=== PATIENT | female | born 1980 | race Caucasian/White ===

== ENCOUNTER 2017-08-15 06:56 | Inpatient (IN) | payer OTHER ==
[2017-08-15] MEDS ORDERED: BUTORPHANOL TARTRATE 1 MG/ML VIAL IVPB ONE (08:09)
[2017-08-15] MEDS ORDERED: PROMETHAZINE HCL 25 MG/1 ML VIAL IVPB ONE (08:09)
[2017-08-15] MEDS ORDERED: AMPICILLIN SODIUM 2 GM VIAL ONE (08:10)
[2017-08-15] MEDS ORDERED: AMPICILLIN - 2 GM in SODIUM CHLORIDE 100 ML IVPB ONE (08:11)
[2017-08-15] MEDS ORDERED: SODIUM PHOSPHATE/NA BIPHOS 133 ML ENEMA PR ONE (08:12)
[2017-08-15] MEDS ORDERED: DEXTROSE 5%-LACTATED RINGERS 1,000 ML IV SCH (08:15)
[2017-08-15 08:31] VITALS: BMI 27.6
[2017-08-15 08:46] LABS: BASO % 0.2 % (0-2.0); EOS % 0.4 % (0-4.5); HEMATOCRIT 37.6 % (32.4-45.2); HEMOGLOBIN 12.2 GM/dL (10.7-15.3); LYMPH % 13.7 % (8-40); MCH 29.6 pg (25.7-33.7); MCHC 32.4 g/dl (32.0-36.0); MEAN CELL VOLUME 91.6 fl (80-96); MEAN PLT VOLUME 9.7 fl (7.5-11.1); MONO % 7.5 % (3.8-10.2); NEUT % 78.2 % (42.8-82.8); PLATELET COUNT 249 K/MM3 (134-434); RBC 4.11 M/mm3 (3.60-5.2); RDW 13.4 % (11.6-15.6); WHITE BLOOD COUNT 8.3 K/mm3 (4.0-10.0)
[2017-08-15 09:01] LABS: INR 0.98 (0.82-1.09); PROTHROMBIN TIME (PATIENT) 11.1 SEC (9.98-11.88)
[2017-08-15 09:20] LABS: ALBUMIN 2.7 g/dl (3.4-5.0); ALK PHOS 314 U/L (45-117); ANION GAP 9 (8-16); BILIRUBIN,TOTAL 0.5 mg/dL (0.2-1.0); BLOOD UREA NITROGEN 6 mg/dL (7-18); CALCIUM 8.1 mg/dL (8.5-10.1); CHLORIDE 108 mmol/L (98-107); CO2 20 mmol/L (21-32); CREATININE 0.6 mg/dL (0.55-1.02); GLUCOSE,RANDOM 94 mg/dL (74-106); POTASSIUM 3.8 mmol/L (3.5-5.1); SGOT/AST 19 U/L (15-37); SGPT/ALT 22 U/L (12-78); SODIUM 137 mmol/L (136-145); TOT PROT 6.8 g/dl (6.4-8.2)
[2017-08-15] MEDS ORDERED: OXYTOCIN 20 UNITS in 0.9% NS 20 UNIT/1,000 ML INFUS.BAG IV ONE ×2 (10:17→12:45)
[2017-08-15] MEDS ORDERED: WITCH HAZEL 50% (TUCKS) 40 PAD/JAR PAD TP PRN (10:44)
[2017-08-15] MEDS ORDERED: oxyCODONE HCL 5 MG TABLET PO PRN (10:44)
[2017-08-15] MEDS ORDERED: BENZOCAINE 20% 57 GM BOTTLE TP PRN (10:44)
[2017-08-15] MEDS ORDERED: BENZOCAINE 28 GM HEMORRHOIDAL OINTMENT TP PRN (10:44)
[2017-08-15] MEDS ORDERED: METHYLERGONOVINE MALEATE 0.2 MG/1 ML AMP IM PRN (10:44)
[2017-08-15] MEDS ORDERED: ACETAMINOPHEN 325 MG TABLET (FP) PO PRN (10:44)
[2017-08-15] MEDS ORDERED: BISACODYL 10 MG SUPP.RECT RC PRN (10:44)
[2017-08-15] MEDS ORDERED: IBUPROFEN 600 MG TABLET (FP) PO PRN (10:44)
[2017-08-15] MEDS ORDERED: OXYTOCIN 20 UNITS in 0.9% NS 20 UNIT/1,000 ML INFUS.BAG IV SCH (10:45)
--- NOTE | 2017-08-15 10:58 | HP ---
Past Medical History - Primary Care Physician PCP:: Stephanie Ibrahim - Admission Chief Complaint: 36 yrs , 39.2/7 weeks iup, inset Lp since 3.00AM History of Present Illness: care at [facility] , wt gain 26 lbs work Up : B Pos, , Rpr nr, Hbsag , Rubella pos, Hiv neg, quantifeeron neg, sickle neg, Pngt 84, gc /ct neg, GBS unknown . h/o bv treated during pregn h/o GERD Limitations to Obtaining History: No Limitations - Past Medical History TAPE TRANSFERRER: No: CVA, Migraine, Seizure Cardiovascular: No: HTN Pulmonary: No: Asthma Gastrointestinal: Yes: GERD, Hemorrhoids Hepatobiliary: No: Cholelithiasis Renal/: No: UTI Reproductive: Yes: Other (h/o BV vaginitis) ...: 3 ...Para: 1 (1 12/21/11 7'12" ) ...Term: 1 ...: 0 ...Spon : 1 ...Induced : 0 ...Multiple Gestation: 0 ...LMP: 11/13/16 ... Weeks Gestation by Dates: 39.2 ...EDC by Dates: 08/20/16 ...EDC by Sono: 08/20/16 (39.2 wks ) Heme/Onc: Yes: Anemia Infectious Disease: No: AIDS, HIV, STD's Psych: Yes: Anxiety, Depression (h/o depression & anxiety in 2006, she was on meds , currently, she has no problems) ENT: Yes: Other (urti) Endocrine: No: Diabetes Mellitus - Past Surgical History Past Surgical History: Yes: None Hx Myomectomy: No Hx Transabdominal Cerclage: No - Smoking History Smoking history: Never smoked Have you smoked in the past 12 months: No - Alcohol/Substance Use Hx Alcohol Use: No History of Substance Use: reports: None Home Medications - Allergies Allergies/Adverse Reactions: Allergies Allergy/AdvReac Type Severity Reaction Status Date / Time No Known Allergies Allergy Verified 11/11/15 18:59 - Home Medications Home Medications: Ambulatory Orders One Tablet 1 tab PO DAILY 08/15/17 Physical Exam - Maternity Vital Signs: Vital Signs Temperature 97.9 F 08/15/17 07:10 Pulse Rate 70 08/15/17 09:00 Respiratory Rate 20 08/15/17 09:00 Blood Pressure 110/70 08/15/17 09:00 O2 Sat by Pulse Oximetry (%) Selected Entries 08/15/17 07:10 Weight 171 lb Constitutional: Yes: Well Nourished, Moderate Distress Eyes: Yes: WNL HENT: Yes: WNL, Normocephalic, Nasal Congestion, Rhinnorhea, Other (braces for teeth) Neck: Yes: WNL Cardiovascular: Yes: WNL, Regular Rate and Rhythm Lungs: Clear to auscultation Breast(s): Yes: WNL - Abdominal Exam/OB Fundal Height: 40 Number of Fetuses: Single Presentation: Vertex Contractions: Yes Regularity: Regular (2 3 min) Intensity: Strong Monitor Mode: External Heart Rate (range): 120-130 Category: I Accelerations: Uniform Decelerations: None - Vaginal Exam/OB Vaginal Bleediing: No Dilatation (cm): 8 Effacement (%): 100 Amniotic Membrane Status: Ruptured (AROM clear at 10.15 Am) Amniotic Fluid: Yes: Clear Presentation: Vertex/Position Station: +1 - Physical Exam Musculoskeletal: Yes: WNL Extremities: Yes: WNL. No: Calf Tenderness Edema: Yes Edema: LLE: 1+, RLE: 1+ Integumentary: Yes: WNL, Tattoos Deep Tendon Reflex Grade: Normal +2 ...Motor Strength: WNL Psychiatric: Yes: WNL, Alert, Oriented - Labs Lab Results: CBC, BMP 08/15/17 08:15 08/15/17 08:15 Problem List - Problems (1) with 39 completed weeks gestation Code(s): Z3A.39 - 39 WEEKS GESTATION OF (2) Labor established Code(s): AGK0857 - Assessment/Plan 36 yrs( AMA) , , 39.2/7 weeks in labor gbs unknown , rx Iv ampicillin prophylaxis anticipate vag, delivery
--- NOTE | 2017-08-15 11:23 | PN ---
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
[2017-08-15] MEDS ORDERED: AMPICILLIN - 1 GM in SODIUM CHLORIDE 100 ML IVPB SCH (12:11)
[2017-08-15] MEDS ORDERED: IBUPROFEN 600 MG TABLET (FP) PO ONE (12:16)
[2017-08-15] MEDS: FERROUS SO4 325 MG TABLET (FP) PO SCH (19:33)
[2017-08-16 09:07] LABS: BASO % 0.6 % (0-2.0); EOS % 0.9 % (0-4.5); HEMATOCRIT 34.6 % (32.4-45.2); HEMOGLOBIN 11.2 GM/dL (10.7-15.3); LYMPH % 18.3 % (8-40); MCH 29.5 pg (25.7-33.7); MCHC 32.4 g/dl (32.0-36.0); MEAN CELL VOLUME 91.1 fl (80-96); MEAN PLT VOLUME 9.3 fl (7.5-11.1); MONO % 5.2 % (3.8-10.2); PLATELET COUNT 244 K/MM3 (134-434); RDW 13.5 % (11.6-15.6); WHITE BLOOD COUNT 11.4 K/mm3 (4.0-10.0)
[2017-08-16] MEDS: FERROUS SO4 325 MG TABLET (FP) PO SCH ×2 (09:29→17:23)
[2017-08-16] MEDS: PRENATAL VITAMINS W/ FOLIC ACID TABLET (FP) PO SCH (09:29)
--- NOTE | 2017-08-16 10:11 | PN ---
Post Progress Note - Subjective Subjective: no complains Post Day: 1 Type of Delivery: Vital Signs: Vital Signs Temperature 98.8 F 08/16/17 07:47 Pulse Rate 60 08/16/17 07:47 Respiratory Rate 18 08/16/17 07:47 Blood Pressure 101/57 08/16/17 07:47 O2 Sat by Pulse Oximetry (%) 100 08/15/17 11:30 Breast Exam: Yes: Soft, Other (BF ). No: Engorged Uterus: Yes: Fundus Firm, Fundus below umbilicus, Non-tender Lochia: Yes: Rubra Lochia, amount: Moderate Extremities: Yes: Calves non-tender Perineum: Yes: Intact Activity: Ambulating - Labs Labs: CBC WBC 11.4 K/mm3 (4.0-10.0) H D 08/16/17 08:00 RBC 3.80 M/mm3 (3.60-5.2) 08/16/17 08:00 Hgb 11.2 GM/dL (10.7-15.3) 08/16/17 08:00 Hct 34.6 % (32.4-45.2) 08/16/17 08:00 MCV 91.1 fl (80-96) 08/16/17 08:00 MCH 29.5 pg (25.7-33.7) 08/16/17 08:00 MCHC 32.4 g/dl (32.0-36.0) 08/16/17 08:00 RDW 13.5 % (11.6-15.6) 08/16/17 08:00 Plt Count 244 K/MM3 (134-434) 08/16/17 08:00 MPV 9.3 fl (7.5-11.1) 08/16/17 08:00 Neutrophils % 75.0 % (42.8-82.8) 08/16/17 08:00 Lymphocytes % 18.3 % (8-40) D 08/16/17 08:00 Monocytes % 5.2 % (3.8-10.2) 08/16/17 08:00 Eosinophils % 0.9 % (0-4.5) D 08/16/17 08:00 Basophils % 0.6 % (0-2.0) 08/16/17 08:00 Problem List - Problems (1) with 39 completed weeks gestation Code(s): Z3A.39 - 39 WEEKS GESTATION OF (2) Labor established Code(s): LOX3806 - (3) Normal spontaneous vaginal delivery Code(s): O80 - ENCOUNTER FOR FULL-TERM UNCOMPLICATED DELIVERY Assessment/Plan stable plan discharge tomorrow.
[2017-08-16] MEDS ORDERED: SENNOSIDES/DOCUSATE COMBO (SENNA PLUS) TABLET (UD) PO PRN (22:00)
--- NOTE | 2017-08-17 03:37 | DS ---
Physical Exam-SENIOR MANAGING DIRECTOR Vital Signs: Vital Signs Temperature 98.1 F 08/16/17 20:58 Pulse Rate 64 08/16/17 20:58 Respiratory Rate 18 08/16/17 20:58 Blood Pressure 108/72 08/16/17 20:58 O2 Sat by Pulse Oximetry (%) 100 08/15/17 11:30 Constitutional: Yes: Well Nourished Eyes: Yes: WNL HENT: Yes: WNL Neck: Yes: WNL Cardiovascular: Yes: WNL Respiratory: Yes: WNL Gastrointestinal: Yes: WNL ...Rectal Exam: Yes: WNL Renal/: Yes: WNL ....Post : Yes: Uterus firm, Uterus non-tender, Moderate lochia rubra ( perineum intact) Breast(s): Yes: WNL (soft, BF) Musculoskeletal: Yes: WNL Extremities: Yes: WNL. No: Calf Tenderness Edema: No Integumentary: Yes: WNL Neurological: Yes: WNL, Alert, Oriented ...Motor Strength: WNL Psychiatric: Yes: WNL Labs: CBC, BMP 08/16/17 08:00 08/15/17 08:15 Delivery - Delivery Vaginal Delivery: No Problems, Spontaneous (compound presentation , hand pushed up, rotation of head was done to delver) Type of Anesthesia: None Episiotomy/Laceration: None EBL (cc): 300 Delivery, Single - Stages of Labor Date 1st Stage Initiatied: 08/15/17 Time 1st Stage Initiated: 03:00 Date 2nd Stage Initiated: 08/15/17 Time 2nd Stage Initiated: 10:20 Date of Delivery: 08/15/17 Time of Delivery: 10:30 Time Placenta Delivered: 10:35 Placenta: Yes: Spontaneous, Uterine Exploration - Condition of Infant Courtesy Car Driver/Alarm Mechanic Present: No Gender: Male Weight: 7 lb 15 oz Position: Left, OA Total Hours ROM (Hrs/Mins): 20 min clear - 1 Minute Total Score: 9 5 Minutes Total Score: 9 - Feeding Plan Initial Plan: Elected not to breastfeed exclusively throughout hospitalization Remarks - Remarks Remarks: 36 yrs 39.2 weeks in labor gbs unknown, received 1 dose of Iv Ampicillin 2 gm pt did not take any pain meds intrapartum course uneventful pp course uneventful. discharge today Discharge Summary Reason For Visit: LABOR ADMIT Current Active Problems Labor established (Acute) Normal spontaneous vaginal delivery (Acute) with 39 completed weeks gestation (Acute) Condition: Stable - Instructions Diet, Activity, Other Instructions: Post Instructions DIET: Continue good diet high in protein, calcium, and iron rich foods. Drink at least eight (8) glasses of water daily in addition to other fluids. ___ Regular diet MEDICATIONS: Continue vitamins and iron as previously directed. Motrin and Tylenol may be taken for minor discomfort. ACTIVITY: Mild to moderate exercise may be started in two (2) weeks. Take frequent rest periods. Resume normal activity after six (6) week check up. WOUND CARE OF OPERATIVE SITE: Continue use of perineal bottle until vaginal discharge stops. Keep area clean. Shower daily. Keep abdominal wound dry. Report any drainage or redness to physician. Tub baths, tampons and douches are not permitted for [address] Breast feeding & or Bottle feeding BREAST CARE: (For those that are not breast feeding): If engorgement occurs: Wear tight fitting bra. Take Tylenol or Motrin for pain. Apply cold packs (ice in bags to each breast ) FAMILY PLANNING: There are many control alternatives to pursue and they should be discussed at your first office visit. You may resume sexual activity after your six (6) week check up. (Remember, breast feeding is not a contraceptive) NEXT PHYSICIAN APPOINTMENT: Be certain to call for a six (6) week appointment, unless otherwise directed. Call Clinic or got to Emergency Dept if you have any of the following: Heavy vaginal bleeding Painful urination Leg pain Unusual odor noted to vaginal bleeding High fever Red streaking noted on breast Referrals: Stephanie Ibrahim MD [Staff Physician] - Disposition: HOME - Home Medications Comprehensive Discharge Medication List: Ambulatory Orders Acetaminophen [Tylenol .Regular Strength -] 650 mg PO Q3H PRN tablet 08/15/17 Ferrous Sulfate [Feosol] 325 mg PO BIDWM tab 08/15/17 Ibuprofen [Motrin -] 200 mg PO Q4H PRN tablet 08/15/17 One Tablet 1 tab PO DAILY 08/15/17 Vitamins (Sjr) - 1 tab PO DAILY tablet 08/15/17
[2017-08-17 08:06] VITALS: BP 115/76; PULSE 60; TEMP 98
[2017-08-17] MEDS: PRENATAL VITAMINS W/ FOLIC ACID TABLET (FP) PO SCH (09:02)
[2017-08-17] MEDS: FERROUS SO4 325 MG TABLET (FP) PO SCH (09:02)
== END 2017-08-17 12:10 | disposition home or self-care (01) | DRG 560 ==
LOC: JDEL 06:56 → JLDR 07:10 → J3W 12:50
PROVIDERS: ADMIT Obstetrics & Gynecology; ATTEND Obstetrics & Gynecology
PROC: 10E0XZZ Delivery of Products of Conception, External Approach (ICD-10-PCS; principal; 2017-08-15)
DX: O80 Encounter for full-term uncomplicated delivery (principal); Z3A.39 39 weeks gestation of pregnancy; Z37.0 Single live birth
CPT/HCPCS: 36415; 59409; 80053; 85025; 85610; 85730; 86593; 86850; 86900; 86901; 87389

== ENCOUNTER 2019-06-07 07:10 | Inpatient (IN) | payer OTHER ==
--- NOTE | 2019-06-07 08:17 | HP ---
Past Medical History - Primary Care Physician PCP:: Stephanie Ibrahim - Admission Chief Complaint: 38 yrs , , edc 06/12/19 39.2/7 weeks, onset LP since 4.00AM & SROM since 6.00AM History of Present Illness: PNC at [facility] wt gain 28 lbs Panel 11/08/18 O pos, , Hbsag neg, Hepc nr, Hiv nr, rpr nr, varicella immune, Rubella immune , 1 hr gtt 100 05/17/19 36 weeks cultures gc/neg, ct neg, gbs neg h/h 12.0/38.3 , plt 230 hsv 1 igg pos 15, hsv2 igg 1.5 pt had ? h/o herpes sevral years ago , solitary lesion noted on vulva by the patient , since hsv titers came pos she was placed on Valtrex 500 mg po daily on 06/01/19 . pt states she gets the bump sometimes , but doctor could not see, she did tacos not feel any more , she took valtrex last night h/o [place] rx ranitidine , followed by omeprazol , pt states nothing effective sonogram by [facility] for growth AMA ; Nt screen & AFP neg , 01/24/19 20.1 weeks anatomy sono sliup, wnl Last sono on 04/18/19 : 32.1 weeks, vx, , ant placenta , eusebio 13.2 , efw 4'3' (42 % tile) , bpp 03/23 History Source: Patient, Medical Record Limitations to Obtaining History: No Limitations - Past Medical History NOZZLEMAN: Yes: Other (declines) Cardiovascular: Yes: Other (declines) Gastrointestinal: Yes: GERD (rx omeprazol 20 mg), Hemorrhoids Hepatobiliary: No: Hepatitis B, Hepatitis C Renal/: No: UTI ...: 4 ...Para: 2 (G1 12/21/11 7'8" il preserian , G3 08/15/17 7' [facility] ) ...Term: 2 ...Spon : 1 (11/09/15) ...EDC by Sono: 06/12/19 (39.2 weeks ) Heme/Onc: Yes: Anemia Infectious Disease: Yes: Other (hsv titers positive) Psych: Yes: Anxiety, Depression (h/o depression & anxiety in 2006, she was on meds , currently, she has no problems) ENT: Yes: Other (urti) Endocrine: Yes: Other (none known to her) - Past Surgical History Past Surgical History: Yes: None Hx Myomectomy: No Hx Transabdominal Cerclage: No - Smoking History Smoking history: Never smoked Have you smoked in the past 12 months: No - Alcohol/Substance Use Hx Alcohol Use: No History of Substance Use: reports: None Home Medications - Allergies Allergies/Adverse Reactions: Allergies Allergy/AdvReac Type Severity Reaction Status Date / Time No Known Allergies Allergy Verified 06/07/19 08:01 - Home Medications Home Medications: Ambulatory Orders Vitamins (Sjr) - 1 tab PO DAILY tablet 08/15/17 Omeprazole 20 mg PO DAILY 06/07/19 Valacyclovir HCl [Valtrex -] 500 mg PO DAILY 06/07/19 Home Medications (free text): omeprazol 20 mg po daily. valcyclovir 500 mg po daily Physical Exam - Maternity Vital Signs: Selected Entries 06/07/19 06/07/19 07:30 08:00 Temperature 97.6 F 97.9 F Pulse Rate 83 67 Blood Pressure 116/71 131/70 Weight 178 lb Constitutional: Yes: Well Nourished, Obese Eyes: Yes: WNL HENT: Yes: WNL, Normocephalic Neck: Yes: WNL Cardiovascular: Yes: WNL, Regular Rate and Rhythm Lungs: Clear to auscultation Breast(s): Yes: WNL - Abdominal Exam/OB Fundal Height: 40 Number of Fetuses: Single Presentation: Vertex (exam at 7.35 AM) Contractions: Yes Regularity: Regular Intensity: Moderate Monitor Mode: External Heart Rate (range): 130 Heart Rate Location: [facility] Category: I Accelerations: Uniform - Vaginal Exam/OB Vaginal Bleediing: No Speculum Exam: No Dilatation (cm): 2 Effacement (%): 70 Amniotic Membrane Status: Ruptured Nitrazine Test: Positive Amniotic Fluid: Yes: Clear (gross leaking) Presentation: Vertex/Position (exam at 7.35 AM) Station: -3 - Physical Exam Musculoskeletal: Yes: WNL Extremities: Yes: WNL. No: Calf Tenderness Edema: No Integumentary: Yes: WNL, Other (external genitalia , vagina introitus , perineum no lesions noted) Deep Tendon Reflex Grade: Normal +2 ...Motor Strength: WNL Psychiatric: Yes: WNL, Alert, Oriented - Labs Lab Results: Laboratory Tests 06/07/19 06/07/19 08:20 08:20 WBC 8.7 Hgb 12.4 Hct 37.2 Plt Count 239 Neutrophils % 79.1 Lymphocytes % 13.1 D Monocytes % 7.2 Eosinophils % 0.4 Basophils % 0.2 Sodium 138 Potassium 3.7 Chloride 108 H Carbon Dioxide 21 BUN 7.8 Creatinine 0.7 Random Glucose 102 Calcium 8.6 Laboratory Tests 06/07/19 06/07/19 08:20 08:20 PT with INR 12.00 INR 1.02 PTT (Actin FS) 26.5 Blood Type O POSITIVE Antibody Screen Negative Problem List - Problems (1) with 39 completed weeks gestation Code(s): Z3A.39 - 39 WEEKS GESTATION OF (2) Labor established Code(s): OWN4067 - (3) SROM (spontaneous rupture of membranes) Code(s): HSK5068 - (4) AMA (advanced maternal age) multigravida 35+ Code(s): O09.529 - SUPERVISION OF ELDERLY MULTIGRAVIDA, UNSPECIFIED TRIMESTER Assessment/Plan 38 yrs , 39.2 weeks , srom , in early labor , gbs neg Plan expectant management trial vaginal delivery
[2019-06-07] MEDS ORDERED: PROMETHAZINE HCL 25 MG/1 ML VIAL IVPUSH ONE (08:40)
[2019-06-07] MEDS ORDERED: BUTORPHANOL TARTRATE 1 MG/ML VIAL IVPB ONE (08:40)
[2019-06-07] MEDS ORDERED: DEXTROSE 5%-LACTATED RINGERS 1,000 ML IV SCH (08:45)
[2019-06-07 08:48] LABS: BASO % 0.2 % (0-2.0); EOS % 0.4 % (0-4.5); HEMATOCRIT 37.2 % (32.4-45.2); HEMOGLOBIN 12.4 GM/dL (10.7-15.3); LYMPH % 13.1 % (8-40); MCH 29.8 pg (25.7-33.7); MCHC 33.2 g/dl (32.0-36.0); MEAN CELL VOLUME 89.8 fl (80-96); MEAN PLT VOLUME 9.4 fl (7.5-11.1); MONO % 7.2 % (3.8-10.2); NEUT % 79.1 % (42.8-82.8); PLATELET COUNT 239 K/MM3 (134-434); RBC 4.14 M/mm3 (3.60-5.2); RDW 13.2 % (11.6-15.6); WHITE BLOOD COUNT 8.7 K/mm3 (4.0-10.0)
[2019-06-07 09:00] VITALS: BMI 28.7
[2019-06-07 09:11] LABS: BLOOD UREA NITROGEN 7.8 mg/dL (7-18); CALCIUM 8.6 mg/dL (8.5-10.1); CREATININE 0.7 mg/dL (0.55-1.3); POTASSIUM 3.7 mmol/L (3.5-5.1)
[2019-06-07 09:14] LABS: INR 1.02 (0.83-1.09)
[2019-06-07 09:16] LABS: POC NITRAZINE POS
[2019-06-07 09:17] LABS: ACTIVATED PTT 26.5 SECONDS (25.2-36.5)
--- NOTE | 2019-06-07 09:21 | PN ---
Progress Note, Labor Vaginal Exam #1 Labor Exam Date: 06/07/19 Labor Exam Time: 09:15 Heart Rate (range): 140 Dilatation: 7 Effacement (%): 100 Amniotic Membrane Status: Ruptured Presentation: Vertex/Position Station: 0 Remarks: fhr cat-1 uc q 3-4 min strong pt declined pain meds Selected Entries 06/07/19 08:00 Temperature 97.9 F Pulse Rate 67 Blood Pressure 131/70 Vaginal Exam #2 Labor Exam Date: 06/07/19 Labor Exam Time: 09:25 Heart Rate (range): 130 Dilatation: 10 Effacement (%): 100 Presentation: Vertex/Position Station: +2 Remarks: pt pushing
[2019-06-07] MEDS ORDERED: OXYTOCIN 20 UNITS in 0.9% NS 20 UNIT/1,000 ML INFUS.BAG IV ONE (09:32)
--- NOTE | 2019-06-07 09:52 | PN ---
Delivery - Delivery Vaginal Delivery: No Problems, Spontaneous (, vx, baby girl, felisha position, shoulders delievered without difficulty, 9/9. immediate oral & nasal suction was done, delayed cord clamping was done , trvascular cord noted , placenta delievered completely with membranes, .MEU done perineum, vagina , cx , ut intact) Episiotomy/Laceration: None EBL (cc): 300 Delivery, Single - Stages of Labor Date 1st Stage Initiatied: 06/07/19 Time 1st Stage Initiated: 04:00 Date 2nd Stage Initiated: 06/07/19 Time 2nd Stage Initiated: 09:25 Date of Delivery: 06/07/19 Time of Delivery: 09:32 Date Placenta Delivered: 06/07/19 Time Placenta Delivered: 09:35 Placenta: Yes: Spontaneous, Uterine Exploration - Condition of Infant Barker Peeler/Metal Baler Present: No Infant Gender: Female Weight: 7 lb 3 oz Position: Left, OA Total Hours ROM (Hrs/Mins): 3hr.35min - 1 Minute Total Score: 9 5 Minutes Total Score: 9 - [place] Feeding Plan Initial Plan: Elected not to breastfeed exclusively throughout hospitalization Remarks - Remarks Remarks: 38 yrs , 39.2 weeks, gbs neg , srom in labor ipnc at [facility] intrapartum course uneventful, no pain meds taken v/s stable
[2019-06-07] MEDS ORDERED: METHYLERGONOVINE MALEATE 0.2 MG/1 ML AMP IM PRN (09:56)
[2019-06-07] MEDS ORDERED: ACETAMINOPHEN 325 MG TABLET (FP) PO PRN (09:56)
[2019-06-07] MEDS ORDERED: BENZOCAINE 20% 57 GM BOTTLE TP PRN (09:56)
[2019-06-07] MEDS ORDERED: BENZOCAINE 28 GM HEMORRHOIDAL OINTMENT TP PRN (09:56)
[2019-06-07] MEDS ORDERED: BISACODYL 10 MG SUPP.RECT RC PRN (09:56)
[2019-06-07] MEDS ORDERED: WITCH HAZEL 50% (TUCKS) 40 PAD/JAR PAD TP PRN (09:56)
[2019-06-07] MEDS ORDERED: oxyCODONE HCL 5 MG TABLET PO PRN (09:56)
[2019-06-07] MEDS ORDERED: OXYTOCIN 20 UNITS in 0.9% NS 20 UNIT/1,000 ML INFUS.BAG IV SCH (10:00)
[2019-06-07] MEDS: PRENATAL VITAMINS W/ FOLIC ACID TABLET (FP) PO SCH (10:45)
[2019-06-07] MEDS: IBUPROFEN 600 MG TABLET (FP) PO PRN (13:12)
--- NOTE | 2019-06-08 06:50 | PN ---
Post Progress Note - Subjective Subjective: Doing well. Pain controlled. No N/V. No fevers/chills. Post Day: 1 Type of Delivery: Vital Signs: Vital Signs Temperature 98.1 F 06/08/19 05:36 Pulse Rate 58 L 06/08/19 05:36 Respiratory Rate 18 06/08/19 05:36 Blood Pressure 126/84 06/08/19 05:36 O2 Sat by Pulse Oximetry (%) 99 06/07/19 10:45 Uterus: Yes: Fundus below umbilicus Abdomen/GI: Yes: Abdomen soft, Passing flatus, Tolerating PO Lochia: Yes: Rubra Lochia, amount: Small Extremities: Yes: Calves non-tender Activity: Ambulating - Labs Labs: CBC WBC 8.7 K/mm3 (4.0-10.0) 06/07/19 08:20 RBC 4.14 M/mm3 (3.60-5.2) 06/07/19 08:20 Hgb 12.4 GM/dL (10.7-15.3) 06/07/19 08:20 Hct 37.2 % (32.4-45.2) 06/07/19 08:20 MCV 89.8 fl (80-96) 06/07/19 08:20 MCH 29.8 pg (25.7-33.7) 06/07/19 08:20 MCHC 33.2 g/dl (32.0-36.0) 06/07/19 08:20 RDW 13.2 % (11.6-15.6) 06/07/19 08:20 Plt Count 239 K/MM3 (134-434) 06/07/19 08:20 MPV 9.4 fl (7.5-11.1) 06/07/19 08:20 Absolute Neuts (auto) 6.8 K/mm3 (1.5-8.0) 06/07/19 08:20 Neutrophils % 79.1 % (42.8-82.8) 06/07/19 08:20 Lymphocytes % 13.1 % (8-40) D 06/07/19 08:20 Monocytes % 7.2 % (3.8-10.2) 06/07/19 08:20 Eosinophils % 0.4 % (0-4.5) 06/07/19 08:20 Basophils % 0.2 % (0-2.0) 06/07/19 08:20 Nucleated RBC % 0 % (0-0) 06/07/19 08:20 Assessment/Plan 38yo s/p , PPD#1 Routine PP care OOB, ambulate Labs pending Anticipate d/c to home PPD#2 Peg Lynn MD
[2019-06-08 07:49] LABS: BASO % 0.3 % (0-2.0); EOS % 0.9 % (0-4.5); HEMATOCRIT 35.3 % (32.4-45.2); HEMOGLOBIN 11.8 GM/dL (10.7-15.3); LYMPH % 15.3 % (8-40); MCH 29.8 pg (25.7-33.7); MCHC 33.4 g/dl (32.0-36.0); MEAN CELL VOLUME 89.3 fl (80-96); MEAN PLT VOLUME 9.3 fl (7.5-11.1); MONO % 6.7 % (3.8-10.2); NEUT % 76.8 % (42.8-82.8); PLATELET COUNT 214 K/MM3 (134-434); RBC 3.96 M/mm3 (3.60-5.2); RDW 13.4 % (11.6-15.6); WHITE BLOOD COUNT 10.2 K/mm3 (4.0-10.0)
[2019-06-08] MEDS ORDERED: DIPHTH,PERTUSS(ACELL),TET 0.5 ML DISP.SYRIN IM ONE (10:00)
[2019-06-08] MEDS: PRENATAL VITAMINS W/ FOLIC ACID TABLET (FP) PO SCH (10:42)
[2019-06-08] MEDS: FERROUS SO4 325 MG TABLET (FP) PO SCH ×2 (10:42→10:45)
[2019-06-08] MEDS: IBUPROFEN 600 MG TABLET (FP) PO PRN (15:15)
[2019-06-08] MEDS ORDERED: SENNOSIDES/DOCUSATE COMBO (SENNA PLUS) TABLET (UD) PO PRN (22:00)
--- NOTE | 2019-06-09 07:21 | PN ---
Progress Note (short form) - Note Progress Note: ppd 2, no c/o , voids ok,no excess vaginal bleeding CBC, BMP 06/08/19 07:13 06/07/19 08:20 Last Vital Signs Temp Pulse Resp BP Pulse Ox 98.9 F 70 20 127/73 99 06/08/19 22:00 06/08/19 22:00 06/08/19 22:00 06/08/19 22:00 06/07/19 10:45 abdomen soft, uterus firm lochia mild no calf tenderness plan d/c home. follow up [facility] care 4 weeks
[2019-06-09] MEDS: PRENATAL VITAMINS W/ FOLIC ACID TABLET (FP) PO SCH (10:01)
[2019-06-09] MEDS: FERROUS SO4 325 MG TABLET (FP) PO SCH (10:01)
--- NOTE | 2019-06-09 12:23 | DS ---
Physical Exam-NUT SIFTER Vital Signs: Vital Signs Temperature 98.9 F 06/08/19 22:00 Pulse Rate 70 06/08/19 22:00 Respiratory Rate 20 06/08/19 22:00 Blood Pressure 127/73 06/08/19 22:00 O2 Sat by Pulse Oximetry (%) 99 06/07/19 10:45 Constitutional: Yes: Diaphoresis Eyes: Yes: WNL HENT: Yes: WNL Neck: Yes: WNL Cardiovascular: Yes: WNL Respiratory: Yes: WNL Gastrointestinal: Yes: WNL, Normal Bowel Sounds ...Rectal Exam: Yes: WNL Renal/: Yes: WNL. No: CVA Tenderness - Left, CVA Tenderness - Right ....Post : Yes: Uterus firm, Uterus non-tender, Moderate lochia rubra ( perineum intact) Breast(s): Yes: WNL Musculoskeletal: Yes: WNL Extremities: Yes: WNL. No: Calf Tenderness Edema: Yes Edema: LLE: 1+, RLE: 1+ Neurological: Yes: WNL, Alert, Oriented ...Motor Strength: WNL Psychiatric: Yes: WNL, Alert, Oriented Labs: CBC, BMP 06/08/19 07:13 06/07/19 08:20 Delivery - Delivery Vaginal Delivery: No Problems, Spontaneous (, vx, baby girl, felisha position, shoulders delievered without difficulty, 9/9. 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 Infusion Present: No Infant Gender: Female Weight: 7 lb 3 oz Position: Left, OA Total Hours ROM (Hrs/Mins): 3hr.35min - 1 Minute Total Score: 9 5 Minutes Total Score: 9 - Feeding Plan Initial Plan: Elected not to breastfeed exclusively throughout hospitalization Remarks - Remarks Remarks: 38 yrs , 39.2 weeks, gbs neg , srom in labor ipnc at [facility] intrapartum course uneventful, no pain meds taken v/s stable pp course uneventful discharge today Discharge Summary Problems reviewed: Yes Reason For Visit: LABOR Current Active Problems AMA (advanced maternal age) multigravida 35+ (Acute) SROM (spontaneous rupture of membranes) (Acute) Procedures: Principal: Hospital Course: uneventful Health Concerns: none Plan of Treatment: as directed Goals: maternal , well being Condition: Stable - Instructions Diet, Activity, Other Instructions: Regular Diet Follow up in 4 weeks Referrals: Irina Lynn MD [Staff Physician] - Disposition: HOME - Home Medications Comprehensive Discharge Medication List: Ambulatory Orders Vitamins (Sjr) - 1 tab PO DAILY tablet 08/15/17 Omeprazole 20 mg PO DAILY 06/07/19 Valacyclovir HCl [Valtrex -] 500 mg PO DAILY 06/07/19 Ibuprofen 600 mg PO Q6H PRN #30 tablet 06/08/19 Prescription Drug Monitoring Program (I-STOP) results: I-STOP reviewed and no issues identified
[2019-06-09 17:32] VITALS: BP 122/68; PULSE 72; TEMP 98.5
== END 2019-06-09 12:30 | disposition home or self-care (01) | DRG 560 ==
LOC: JDEL 07:10 → JLDR 07:30 → J3W 11:46
PROVIDERS: ADMIT Obstetrics & Gynecology; ATTEND Obstetrics & Gynecology
PROC: 10E0XZZ Delivery of Products of Conception, External Approach (ICD-10-PCS; principal; 2019-06-07)
DX: O99.214 Obesity complicating childbirth (principal); Z3A.39 39 weeks gestation of pregnancy; Z37.0 Single live birth
CPT/HCPCS: 36415; 59409; 80048; 83986-QW; 85025; 85610; 85730; 86593; 86850; 86870; 86900; 86901; 86902; 90715

== ENCOUNTER 2019-08-18 04:27 | Day surgery (SDC) | payer OTHER ==
[2019-08-14 10:55] VITALS: BMI 26.9
--- NOTE | 2019-08-18 09:54 | HP ---
Admitting History and Physical - Admission Chief Complaint: Desires Sterilization History of Present Illness: 38yo here for permanent sterilization via LSC b/l salpingectomy. Declined other LARCs Adamant she wants no future pregnancies/children. 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 No: AFIB, Aneurysm, Aortic Insufficiency , Aortic Stenosis, CAD, CHF, Deep Vein Thrombosis, HTN, Hyperlipdemia, VT, Mitral Insufficiency, Mitral Stenosis, Murmur, Pulmonary Hypertension Pulmonary: No: Asthma, Bronchitis, Cancer, COPD, O2 Dependent, Pneumonia, Previously Intubated, Pulmonary Embolus, Pulmonary Fibrosis, Sleep Apnea, Other Gastrointestinal: Yes: GERD (rx omeprazol 20 mg), Hemorrhoids. No: Ascites, Cancer, Constipation, Crohn's Disease, Diverticulitis, Diverticulosis, Esophageal Varices, Gastritis, GI Bleed, Hiatal Hernia, Inflamatory Bowel Disease, Irritable Bowel Disease, Pancreatitis, Peptic Ulcer Disease, Ulcerative Colitis, Other Hepatobiliary: Yes: Hepatitis B, Other. No: Cirrhosis, Cholelithiasis, Cholecystitis, Choledocholithiasis, Hepatitis A, Hepatitis C Renal/: No: Renal Failure, Renal Inusuff, BPH, Cancer, Hematuria, Hemodialysis , Neurogenic Bladder, Renal Calculi, UTI, Other Reproductive: No: Ectopic , Endometriosis, Fibroids, PID, Polycystic Ovary Syndrome, Postmenopausal, Other ...: No ...: 4 ...Para: 3 Heme/Onc: Yes: Anemia Infectious Disease: Yes: Other (hsv titers positive) Psych: Yes: Anxiety, Depression (h/o depression & anxiety in 2006, she was on meds , currently, she has no problems) ENT: Yes: Other (urti) Endocrine: Yes: Other (none known to her) - Past Surgical History Past Surgical History: Yes: None - Smoking History Smoking history: Never smoked Have you smoked in the past 12 months: No - Alcohol/Substance Use Hx Alcohol Use: No History of Substance Use: reports: None - Social History Usual Living Arrangement: Yes: With Significant Other Do you think of yourself as: Straight/Heterosexual ADL: Independent History of Recent Travel: No Home Medications - Allergies Allergies/Adverse Reactions: Allergies Allergy/AdvReac Type Severity Reaction Status Date / Time No Known Allergies Allergy Verified 08/18/19 08:19 - Home Medications Home Medications: Ambulatory Orders Vitamins (Sjr) - 1 tab PO DAILY tablet 08/15/17 Bcp 1 tab PO DAILY 08/18/19 Review of Systems - Review of Systems Constitutional: denies: No Symptoms, Chills, Diaphoresis, Fever, Lethargy, Loss of Appetite, Malaise, Night Sweats, Unintentional Wgt. Loss, Weakness, Other Cardiovascular: denies: No Symptoms, Chest Pain, Edema, Palpitations, Shortness of Breath, Other Respiratory: denies: No Symptoms, Cough, Exercise Intolerance, Hemoptysis, Orthopnea, PND, Snoring, SOB, SOB on Exertion, Wheezing, Other Physical Examination Vital Signs: Vital Signs Temperature 97.9 F 08/18/19 08:17 Pulse Rate 62 08/18/19 08:17 Respiratory Rate 08/18/19 08:17 Blood Pressure 127/78 08/18/19 08:17 O2 Sat by Pulse Oximetry (%) 99 08/18/19 08:14 Constitutional: Yes: Well Nourished, No Distress, Calm Eyes: Yes: WNL, Conjunctiva Clear, EOM Intact HENT: Yes: WNL, Atraumatic, Normocephalic Neck: Yes: WNL, Supple, Trachea Midline Cardiovascular: Yes: WNL, Regular Rate and Rhythm Respiratory: Yes: WNL, Regular, CTA Bilaterally Gastrointestinal: Yes: WNL, Normal Bowel Sounds Musculoskeletal: Yes: WNL Extremities: Yes: WNL Edema: No Integumentary: Yes: WNL Neurological: Yes: WNL, Alert, Oriented ...Motor Strength: WNL Psychiatric: Yes: WNL Problem List - Problems (1) Sterilization Code(s): Z30.2 - ENCOUNTER FOR STERILIZATION Assessment/Plan 38yo here for sterilization. Declined other methods of contraception Risks and alternatives reviewed, all questions answered Consents signed. Proceed with LSC salpingectomy
[2019-08-18] MEDS ORDERED: MIDAZOLAM HCL 2 MG/2 ML SINGLE DOSE VIAL ONE (09:55)
[2019-08-18] MEDS ORDERED: PROPOFOL 20 ML ONE (09:55)
[2019-08-18] MEDS ORDERED: SUCCINYLCHOLINE CHLORIDE 200 MG/10 ML SYRINGE ONE (09:55)
[2019-08-18] MEDS ORDERED: BUPIVACAINE HCL/PF 0.25% (2.5MG/ML) 10 ML VIAL ONE (10:03)
[2019-08-18] MEDS ORDERED: ROCURONIUM BROMIDE 50 MG/5 ML SYRINGE ONE (10:34)
[2019-08-18] MEDS ORDERED: DEXAMETHASONE SOD PHOSPHATE 4 MG/1 ML VIAL ONE (10:45)
[2019-08-18] MEDS ORDERED: BUPIVACAINE HCL/PF 0.25% (2.5MG/ML) 10 ML VIAL IJ ONE ×2 (10:54→11:09)
[2019-08-18] MEDS ORDERED: NEOSTIGMINE METHYLSULFATE 0.5 MG/ML - 10 ML MDV ONE (11:06)
[2019-08-18] MEDS ORDERED: GLYCOPYRROLATE 0.2 MG/1 ML VIAL ONE ×2 (11:06→11:08)
[2019-08-18] MEDS ORDERED: KETOROLAC TROMETHAMINE 30 MG/1 ML VIAL ONE (11:16)
[2019-08-18] MEDS ORDERED: oxyCODONE HCL 5 MG TABLET PO PRN (11:42)
[2019-08-18] MEDS ORDERED: ONDANSETRON 4 MG/2 ML VIAL IVPUSH PRN (11:42)
[2019-08-18] MEDS ORDERED: LACTATED RINGERS SOLUTION 1,000 ML IV SCH (11:45)
[2019-08-18] MEDS ORDERED: oxyCODONE HCL 5 MG TABLET ONE (12:31)
--- NOTE | 2019-08-18 12:41 | OP ---
Operative Note - Note: Operative Date: 08/18/19 Pre-Operative Diagnosis: Desires Permanent Sterilization Operation: Laparoscopic Bilateral Salpingectomy Findings: Normal uterus, Truncated L fallopian tube in the isthmic region, normal right fallopian tube Post-Operative Diagnosis: Same as Pre-op Surgeon: Irina Lynn Flat Drier: Zeke Valadez Anesthesia: General Specimens Removed: Bilateral Fallopian tubes Estimated Blood Loss (mls): 5 Drains, Volume Out (mls): 500 (clear urine) Operative Report Dictated: Yes
--- NOTE | 2019-08-18 13:51 | SURG ---
Surgery Mussel Farmer Note Mussel Farmer: Zeke Valadez PA-C (Suzy) Date of Service: 08/18/19 Diagnosis: Desire permanent sterilization Procedure: Laparoscopic Bilateral Salpingectomy I was present for the entirety of the operative procedure. For further detail, please refer to operative report. Visit type - Case Type Case Type: Scheduled - Emergency Emergency Visit: No - New patient This patient is new to me today: Yes Date on this admission: 08/18/19 - Critical Care Critical Care patient: No
[2019-08-18 16:57] VITALS: TEMP 97.8
[2019-08-18 17:16] VITALS: BP 130/70; PULSE 70
--- NOTE | 2019-08-22 12:12 | OP ---
DATE OF OPERATION: 08/18/2019 PREOPERATIVE DIAGNOSIS: Desires permanent sterilization. POSTOPERATIVE DIAGNOSIS: Desires permanent sterilization. PROCEDURE: Laparoscopic bilateral salpingectomy. INTRAVENOUS FLUIDS: Per anesthesia record. ESTIMATED BLOOD LOSS: 5. URINE OUTPUT: 500 mL of clear urine. SURGEON: Irina Lynn MD HOME HEALTH CAREGIVER: JAMEE Irving FINDINGS: Normal uterus. Truncated left fallopian tube in the isthmic portion. Normal right fallopian tube. Normal ovaries bilaterally. SPECIMENS: Bilateral fallopian tubes. COMPLICATIONS: None. CONDITION: Stable to recovery room. NATURE OF THE PROCEDURE: After the appropriate consents were signed, patient was taken to the operating room. General anesthesia was administered. She was placed in lithotomy position. The operative field was prepped and draped in normal sterile fashion. A time-out was confirmed confirming correct patient and procedure. The umbilicus was injected with 0.25% Marcaine. A 5-mm incision was made with a scalpel. The laparoscopic was then introduced under direct visualization confirming correct placement. The abdomen was insufflated with gas. The patient was placed in Trendelenburg position. A left lower quadrant and right lower quadrant 5-mm port was inserted under direct visualization. The patient's pelvis was inspected. The uterus was noted to be normal. The patient's left fallopian tube was already truncated in the isthmic portion. Left ovary appeared normal. The patient's right fallopian tube and ovary also appeared normal. Using the LigaSure device, the patient's left fallopian tube was ligated along the mesosalpinx all the way to its insertion point at the uterus. Bite sites were noted to be hemostatic. Patient's fallopian tube was taken out near the left lower quadrant port. Attention was then paid to the right fallopian tube, which was grasped in the isthmic portion and carried through to the fimbriated ends, which appeared normal. Then in subsequent bites with the LigaSure, the device was taken down along the mesosalpinx again to its insertion point at the uterus. Bite sites were noted to be hemostatic. The patient's right fallopian tube was taken out through the left lower quadrant port. The bite sites on both the left and right were noted to be hemostatic. The left lower quadrant port was then removed under visualization. The right lower quadrant was removed under visualization. The umbilical port was then removed. All incision points were then closed with a 4-0 Biosyn. Bandages were placed. All sponge, lap, needle counts were correct x3. The patient did not receive any antibiotics during this procedure. She was taken from the operating room to the recovery area in stable condition. MD GEOFF DYE/[id number]
--- NOTE | 2019-08-22 14:06 | PATH ---
Surgical Pathology Report Patient Name: FILEMON MARRERO Med. Rec. #: [id number] /Age/Gender: 1980 (Age: 38) / F Account: [id number] Location: [facility] Taken: 08/18/2019 Received: 08/21/2019 Reported: 08/22/2019 Physicians: Irina Lynn Specimen(s) Received A: RIGHT FALLOPIAN TUBE B: LEFT FALLOPIAN TUBE Clinical History Sterilization Final Diagnosis A. RIGHT FALLOPIAN TUBE, RESECTION: PORTIONS OF FALLOPIAN TUBES WITH NO SIGNIFICANT PATHOLOGIC CHANGE. COMPLETE CROSS SECTION OF THE FALLOPIAN TUBE LUMEN IDENTIFIED. B. LEFT FALLOPIAN TUBE, RESECTION: PORTIONS OF FALLOPIAN TUBES WITH NO SIGNIFICANT PATHOLOGIC CHANGE. COMPLETE CROSS SECTION OF THE FALLOPIAN TUBE LUMEN IDENTIFIED. Electronically Signed Geoffrey Sanders M.D. Gross Description A. Received in formalin labeled "right tube," are 3 portions of fallopian tube ranging from 1.7-2.5 cm in length. The longest portion displays attached fimbria. The outer surfaces are ballesteros-staton with focal attached fat. Sectioning reveals an unremarkable lumen. Sound Recording Technician sections are submitted in 2 cassettes as follows: 1-fimbria; 2-cross sections of fallopian tube. B. Received in formalin labeled "left fallopian tube," are 4 portions of fallopian tube ranging from 0.5-2.0 cm in length. The fimbria are separately received within the same container. The outer surfaces are ballesteros-staton with focal attached fat. Sectioning reveals an unremarkable lumen. Sound Recording Technician sections are submitted in 2 cassettes as follows: 1-fimbria; 2-cross sections of fallopian tube. /08/21/2019 saudi/08/21/2019
== END 2019-08-18 14:50 | disposition home or self-care (01) ==
LOC: JASU-SURG 04:27
PROVIDERS: ATTEND Obstetrics & Gynecology
PROC: 0U574ZZ Destruction of Bilateral Fallopian Tubes, Percutaneous Endoscopic Approach (ICD-10-PCS; principal; 2019-08-18 10:00)
DX: Z30.2 Encounter for sterilization (principal)
CPT/HCPCS: 84703; 88302-TC; 94760